=== PATIENT | female | born 1985 | race Hispanic/Latino ===

== ENCOUNTER 2022-02-07 13:46 | Outpatient (CLI) | payer OTHER, SELFPAY ==
[2022-02-07 15:03] LABS: Hematocrit 39.5 % (37.0-47.0); Hemoglobin 13.1 g/dL (12.0-15.0); Mean Corpuscular HGB Conc 33.2 g/dl (32-36); Mean Corpuscular Hemoglobin 27.3 pg (26-34); Mean Corpuscular Volume 82.3 fl (80-100); Mean Platelet Volume 9.9 fl (7.4-10.4); Platelet Count Result 271 k/mm3 (150-375); Red Cell Distribution Width 16.2 % (11.5-14.5); White Blood Count 6.2 K/mm3 (4.5-10.0)
== END 2022-02-07 13:47 | disposition home or self-care (01) ==
PROVIDERS: Visit Provider Obstetrics & Gynecology Gynecologic Oncology
DX: Z01.818 Encounter for other preprocedural examination (principal)
CPT/HCPCS: 36415; 85027; 86850; 86900; 86901

== ENCOUNTER 2023-11-23 03:21 | Day surgery (SDC) | payer OTHER, SELFPAY ==
[2023-11-21 10:19] VITALS: BMI 22.4
--- NOTE | 2023-11-21 10:27 | PC.NURSE ---
Report to the Outpatient Waiting Room, entrance under the green pavilion located off [facility], at time __8:30 AM on date _11/23/23 . Planned Procedure Time: _1030 . Time changes happen often and if your time is changed the preop area will call you the afternoon before. - You and your visitor will be asked to self-screen and do not enter if you have any COVID symptoms. - A mask is optional within the hospital at this time. Patients may have clear liquids (water, carbonated beverages, clear teas, apple juice) until 3 hours prior to surgery( 7:30 AM) with a maximum of 20 ounces. - No food from midnight until time of surgery - Infants may have breast milk until 4 hours before surgery, infant formula 6 hours prior to surgery. - Children will be allowed to drink immediately following surgery. If applicable, please bring a bottle or sippy cup to assist with drinking. Juice, water, soda, and popsicles are readily available. For infants on formula, please bring formula the day of surgery. Pacifiers are allowed. Take the following medications with a SIP of water the morning of surgery: ____NONE DO NOT STOP ANY OF YOUR OTHER PRESCRIPTION MEDICATIONS PRIOR TO SURGERY ?EXCEPT THE FOLLOWING Medications to discontinue per physician NONE Please no make-up, nail georgian, hairspray, perfume, deodorant, or body powder the day of surgery. No jewelry (including any body piercings) or valuables the day of surgery, leave them at home. Please take a shower or bath the night before, or the morning of, surgery with an antibacterial soap. Wear comfortable, loose fitting clothing. Children are encouraged to wear pajamas. - Jewelry must be removed prior to entering the operating room. Rings and piercings that are not removed may be cut off. - The hospital will not accept responsibility for valuables. - Please leave all valuables, including medications, at home the day of surgery. If you are going home after surgery, a licensed tank truck driver must drive you home. - NO public transportation without another adult if you receive anesthesia. - We recommend that an adult stay with you for 24 hours following discharge. - We also recommend that you do not drive, make important decision, drink alcoholic beverages, or take any drugs that were not prescribed by your health care provider for at least 24 hours after your discharge time. Follow any additional instructions given to you from your surgeon. If you or anyone in your household have experienced Covid symptoms in the past week, please notify your surgeon or the nurse liaison at the phone number below for possible testing. Telephone instructions given to ___PATIENT and asked if any additional questions and then verbalized understanding. [facility] COMPUTER REPAIR INSTRUCTOR RAFA # [id number] Patient advised to call surgeon office or pre surgery nurse liaison [phone] if any additional questions.
[2023-11-21 10:47] VITALS: BP 106/70; PULSE 68; RESP 18; TEMP 36.7; O2SAT 100
--- NOTE | 2023-11-22 13:09 | WPDANESEPPF ---
Anes - Initial Pre Proc Eval Procedure: Operation Date: 11/23/23 10:30 Proposed Procedures p Diagnostic Laparoscopy, Bilateral Laparoscopic Salpingectomy, Mirena Intrauterine Device Removal - Radha Barnett DO Date/Time: 11/22/23 13:09 Surgeon: Radha Barnett DO Pre Op Diagnosis: desires sterilization Patient Data Age: 38 Gender: F Height: 1.65 m Weight: 61 kg Last Vital Signs Temp 36.7 C 11/21/23 10:47 Pulse 68 11/21/23 10:47 Resp 18 11/21/23 10:47 BP 106/70 11/21/23 10:47 Pulse Ox 100 11/21/23 10:47 O2 Del Method Room Air 11/21/23 10:47 Allergies Allergy/AdvReac Type Severity Reaction Status Date / Time No Known Allergies Allergy Verified 11/23/23 08:22 Home Medications Medication Instructions Recorded Confirmed Type No Home Medications 11/21/23 11/23/23 History Patient hx anesthesia problems: none Family hx anesthesia problems: none Results Review: All pre-operative results and documents have been reviewed as part of the pre-operative evaluation. [facility] Surgical History Surgical History (Updated 11/22/23 @ 13:10 by Dominic Saul DO) History of cholecystectomy Social History Social History Smoking status: Never smoker Second hand tobacco smoke exposure: No Alcohol intake: never Substance use: never Substance use type: does not use Living arrangements: with family Spiritual care concerns: No Anes - Eval Final PreProcedure Day of Procedure 11/22/23 13:09 Patient weight: normal Heart: regular rate and rhythm Lungs: clear to auscultation Airway: Mallampati scale class II Neurological: alert and oriented Last oral intake: >/= 8 hours ASA classification: I Emergent: no Anesthetic plan: proceed Anesthesia type and monitoring: general ETT and standard monitoring Results Review: All pre-operative results and documents have been reviewed as part of the pre-operative evaluation. Informed Consent: The patient's anesthetic plan and its attendant risks and benefits were discussed with the patient/family/POA. Questions were solicited and answers provided to the satisfaction of the patient/family/POA.
[2023-11-23] VITALS (11 sets, daily range): BP systolic 76–105; BP diastolic 50–72; PULSE 63–83; RESP 12–18; TEMP 36.1–36.4; O2SAT 99–100
--- NOTE | 2023-11-23 08:42 | SUR.PREOP ---
PATIENT CHECKED INTO PREOP AREA WITH AIRPLANE TESTER. REFERENCE #[id number]. PATIENT HAS NO QUESTIONS AT THIS TIME.
[2023-11-23] MEDS: LACTATED RINGERS 1,000 ML 30 ML IV CONT ×2 (09:18→10:50)
[2023-11-23] MEDS: GABAPENTIN 300 MG CAPSULE PO (09:19)
[2023-11-23] MEDS: ACETAMINOPHEN 500 MG TABLET 1000 MG PO (09:19)
--- NOTE | 2023-11-23 09:23 | SUR.PREOP ---
BUSINESS ASSOCIATE USED REFERENCE #[id number]. PATIENT HAS NO QUESTIONS AT THIS TIME.
--- NOTE | 2023-11-23 09:43 | WPDHPUPDATE1 ---
History and Physical Update Update Date/Time: 11/23/23 09:43 History and Physical has been reviewed, including an updated exam of the patient. There are NO changes in the patient's condition. Risks, benefits, and alternatives have been discussed and questions answered. Patient agrees to proceed with procedure.
--- NOTE | 2023-11-23 09:43 | PM.IMHP ---
H&P: HPI History of Present Illness Date/Time: 11/23/23 09:43 Chief Complaint: I'm having my tubes out Narrative: Kacy presents desiring permanent sterilization via diagnostic laparoscopy, bilateral salpingectomy and Mirena removal. Review of Systems Review of Systems: All systems reviewed & are unremarkable except as noted in HPI and below PMFSH Surgical History Surgical History History of cholecystectomy Social History Social History Smoking status: Never smoker Second hand tobacco smoke exposure: No Alcohol intake: never Substance use: never Substance use type: does not use Living arrangements: with family Spiritual care concerns: No Meds Home Medications and Allergies Home Medications Medication Instructions Recorded Confirmed Type No Home Medications 11/21/23 11/23/23 History Allergies Allergy/AdvReac Type Severity Reaction Status Date / Time No Known Allergies Allergy Verified 11/23/23 08:22 Vital Signs Vital Signs - 24 hr 11/23/23 08:37 Temperature 36.4 C L Pulse Rate 63 Respiratory Rate 18 Blood Pressure 100/58 L Pulse Oximetry 100 Oxygen Delivery Room Air Assessment and Plan Assessment and plan (1) Sterilization: Code(s): Z30.2 - Encounter for sterilization Status: Acute (2) Encounter for IUD removal: Code(s): Z30.432 - Encounter for removal of intrauterine contraceptive device Status: Acute Plan Diagnostic laparoscopy, bilateral salpingectomy, Mirena removal.
[2023-11-23] MEDS: BUPivacaine HCL 0.25% PF 30 ML VIAL 20 ML INFILTRATE (10:24)
--- NOTE | 2023-11-23 10:39 | W.PM.PROC2 ---
Procedure Note - Detailed Date of Procedure 11/23/23 Pre-op Diagnosis desires sterilization Post-op Diagnosis Same Procedure Performed Diagnostic laparoscopy, bilateral salpingectomy, Mirena removal Surgeon Radha Barnett, DO Anesthesia General Indications Desires permanent sterilization Findings Normal vaginal canal and vulva. Normal medium cervix. uterus sounded to 8 cm. Internally, the liver and intestines were normal. There were two small right paratubal cysts and otherwise the pelvic organs were normal. Description of Procedure Patient was taken to the operating room where she was placed under general anesthesia. She was prepped and draped in the normal sterile fashion in a dorsal lithotomy position. No preoperative antibiotics were indicated. A time-out was performed. Cervix was visualized using a speculum and was grasped with a long Allis clamp. The Mirena IUD was removed and found to be intact. It was not sent to pathology. The cervix was dilated up to accommodate a disposable uterine manipulator. The manipulator was placed. The Allis and speculum were removed. Gloves were changed and attention was then turned to the abdomen. The skin above the umbilicus was grasped with a penetrating towel clamp and was injected with local. A small incision was made and a Veress needle was introduced. Saline water drop test was performed to confirm intraperitoneal placement. The abdomen was brought to a filling pressure of 15 mmHg. The Veress needle was replaced with a 5mm trocar. Survey of the abdomen revealed no evidence of bowel or vascular injury upon entry. There was some preperitoneal air that had tracked up through the falciform ligament. Additional port sites in the right and left lower quadrants were identified, injected and incised. The patient was then placed in steep Trendelenburg position. The abdominal pressure was dropped to 11mmHg. Pelvic organs were visualized and were as described above. The right tube was elevated and was cauterized and transected off using LigaSure and was passed off through the public relations assistant port. The procedure was repeated in identical fashion on the left-hand side. The pedicles were reinspected and found to be hemostatic. The instruments and trocars were removed. The patient was taken out of Trendelenburg. The incisions were closed with 4-0 monocryl in a subcuticular fashion and covered with skin glue. The uterine manipulator was removed. The patient was extubated and taken to the recovery room in stable condition. The instruments and sponges were correct at the conclusion of the procedure. Estimated Blood Loss 5 Drains No Packing No Pathology Yes Complications No immediate complications Condition Stable
[2023-11-23] MEDS: oxyCODONE HCL (*CRX) 5 MG TAB IR PO (12:07)
[2023-11-23] MEDS: ONDANSETRON INJ 4 MG/2 ML VIAL IV PUSH (12:52)
[2023-11-23] MEDS: SCOPOLAMINE 1 MG PATCH 1 PATCH TRANSDERM (13:48)
== END 2023-11-23 13:49 | disposition home or self-care (01) ==
PROVIDERS: Visit Provider Obstetrics & Gynecology Gynecologic Oncology
PROC: (CPT 49320; principal; 2023-11-23 10:30)
DX: Z30.2 Encounter for sterilization (principal); Z30.432 Encounter for removal of intrauterine contraceptive device; N83.8 Other noninflammatory disorders of ovary, fallopian tube and broad ligament
CPT/HCPCS: 58661; 58301; 88302; A9270; J1100; J2250; J2405; J2704; J3010; J7120